=== PATIENT | male | born 1985 | race Hispanic/Latino ===

== ENCOUNTER 2016-09-19 14:28 | Emergency (ER) | payer SELFPAY ==
[2016-09-19 15:27] VITALS: BP 127/83
[2016-09-19 15:42] LABS: Basophils % (Auto) 0.5 % (0.0-1.8); Hematocrit 47.5 % (35.5-45.6); Hemoglobin 15.7 gm/dl (11.8-15.2); Mean Corpuscular HGB Conc 33 % (32-34); Mean Corpuscular Hemoglobin 31 pg (28-32); Mean Corpuscular Volume 92 fl (84-94); Platelet Count 261 K/mm3 (140-440); Red Blood Count 5.17 M/mm3 (3.65-5.03); Red Cell Distribution Width 14.2 % (13.2-15.2); White Blood Count 8.9 K/mm3 (4.5-11.0)
[2016-09-19 16:03] LABS: Anion Gap 21 mmol/L; Blood Urea Nitrogen 14 mg/dL (9-20); Calcium 9.4 mg/dL (8.4-10.2); Carbon Dioxide 23 mmol/L (22-30); Chloride 102.5 mmol/L (98-107); Glucose 103 mg/dL (75-100); Potassium 4.1 mmol/L (3.6-5.0); Sodium 142 mmol/L (137-145)
== END 2016-09-19 16:00 | disposition left against medical advice (07) ==
LOC: ED 14:28
DX: R07.9 Chest pain, unspecified (principal); R51 Headache; Z53.21 Procedure and treatment not carried out due to patient leaving prior to being seen by health care provider
CPT/HCPCS: 36415; 80048; 84484; 85025; 93005; 93010

== ENCOUNTER 2017-09-01 10:30 | Outpatient (CLI) | payer MEDICAID ==
--- NOTE | 2017-09-02 07:06 | Ultrasound Report ---
FINAL REPORT EXAM: US RENAL BILAT HISTORY: ACUTE PROSTATITIS,CALCULUS OF KIDNEY TECHNIQUE: Routine imaging was obtained of the kidneys. FINDINGS: The right kidney is normal size contour and echotexture measuring 10.6 cm x 4.8 cm x 4.7 cm. The cortical thickness is 1.5 cm. There is no evidence of shadowing stones or hydronephrosis. The left kidney measures 10.5 cm x 4.4 cm x 4.1 cm. The cortical thickness is 1.1 cm. There are multiple echogenic foci throughout the left kidney most likely representing nonobstructing stones. There is no evidence of hydronephrosis. The bladder was not fully distended at the time the examination. IMPRESSION: Multiple echogenic foci in left kidney most likely representing nonobstructing stones. No evidence of hydronephrosis bilaterally.
== END 2017-09-01 10:31 | disposition home or self-care (01) ==
LOC: US 10:30
PROVIDERS: ATTEND Urology
DX: N41.0 Acute prostatitis (principal); N20.0 Calculus of kidney
CPT/HCPCS: 76770

== ENCOUNTER 2017-10-09 09:35 | Outpatient (CLI) | payer MEDICAID ==
--- NOTE | 2017-10-09 15:24 | Cat Scan Report ---
FINAL REPORT PROCEDURE: CT ABDOMEN PELVIS WO CON TECHNIQUE: Computerized axial tomography of the abdomen and pelvis was performed without intravenous contrast. This study is performed without intravascular contrast material and its sensitivity for abdominal and pelvic pathology, including neoplasms, inflammation, abscess, free fluid, thrombosis, arterial dissection and infarction, is reduced compared with a contrast enhanced study. HISTORY: CALCULUS OF KIDNEY COMPARISON: No prior studies are available for comparison. FINDINGS: Lower Lung polo: No abnormality is seen. Upper Abdomen: There are few small calcified granulomas in the right lobe of the liver. The liver is otherwise unremarkable. The gallbladder is surgically absent. The adrenal glands are unremarkable. The pancreas and spleen show no abnormalities. Kidneys, Ureters and Urinary bladder: There is a nonobstructing 2 millimeter calculus in the upper 3rd of the right kidney. No other renal calculi are seen. No hydronephrosis visualized. No ureteral calculi are seen. The urinary bladder is nearly empty and shows no gross abnormality. 10 millimeter low-density nodule seen in the lower 3rd of the right kidney anteriorly appears represent a small renal cortical cyst. The kidneys otherwise are unremarkable. Retroperitoneum: Abdominal aorta appears normal. Nonspecific subcentimeter lymph nodes are seen in the retroperitoneum. No pathologically enlarged lymph nodes are identified. Bowel: No abnormalities are seen. Normal-appearing appendix is visualized in the right lower quadrant. Reproductive organs: Prostate gland does not appear to be enlarged. Other: Several Schmorl's nodes are visualized in the lower thoracic spine. No acute bony abnormalities are identified. IMPRESSION: Nonobstructing 2 millimeter calculus upper 3rd right kidney. Small renal cortical cyst visualize lower 3rd right kidney. Kidneys are otherwise unremarkable. No acute abnormalities are identified..
== END 2017-10-09 09:36 | disposition home or self-care (01) ==
LOC: CT 09:35
PROVIDERS: ATTEND Urology
DX: N20.0 Calculus of kidney (principal); K76.89 Other specified diseases of liver; M51.44 Schmorl's nodes, thoracic region; N28.1 Cyst of kidney, acquired; G40.909 Epilepsy, unspecified, not intractable, without status epilepticus; G92 Toxic encephalopathy; Z90.49 Acquired absence of other specified parts of digestive tract; Z91.81 History of falling; Z79.899 Other long term (current) drug therapy
CPT/HCPCS: 74176

== ENCOUNTER 2018-06-02 13:17 | Emergency (ER) | payer MEDICAID ==
--- NOTE | 2018-06-02 13:34 | Emergency Department Report ---
Blank Doc - Documentation Documentation: This is a 33-year-old male that presents with SI. Stated wants to take all pi lls to self harm self. This initial assessment/diagnostic orders/clinical plan/treatment(s) is/are subject to change based on patient's health status, clinical progression and re- assessment by fellow clinical providers in the ED. Further treatment and workup at subsequent clinical providers discretion. Patient/guardians urged not to elope from the ED as their condition may be serious if not clinically assessed and managed. Initial orders include: 1- Patient sent to MAIN ED for further evaluation and treatment 2- plastics spreading machine operator was notified to have patient be brought back [facility]. 3- RN was notified to keep patient as close range and observation until room available 4- Patient presents with substantial risk of imminent harm to self, appears to be so unable to care for his/her own physical health and safety as to create an imminently life-endangering crisis, and has committed/expressed life endangering crisis to self. Due to this and other complaints, patient is put on 1013. 5- labs
[2018-06-02 14:26] LABS: Basophils # (Auto) 0.1 K/mm3 (0.0-0.1); Basophils % (Auto) 0.8 % (0.0-1.8); Eosinophils # (Auto) 0.1 K/mm3 (0.0-0.4); Eosinophils % (Auto) 1.8 % (0.0-4.3); Hematocrit 47.6 % (35.5-45.6); Hemoglobin 16.3 gm/dl (11.8-15.2); Lymphocytes # (Auto) 2.9 K/mm3 (1.2-5.4); Lymphocytes % (Auto) 34.8 % (13.4-35.0); Mean Corpuscular HGB Conc 34 % (32-34); Mean Corpuscular Volume 93 fl (84-94); Monocytes # (Auto) 0.4 K/mm3 (0.0-0.8); Monocytes % (Auto) 5.4 % (0.0-7.3); Platelet Count 274 K/mm3 (140-440); Red Blood Count 5.13 M/mm3 (3.65-5.03)
[2018-06-02 14:42] LABS: Alanine Aminotransferase 28 units/L (7-56); Albumin 4.5 g/dL (3.9-5); BUN/Creatinine Ratio 16; Blood Urea Nitrogen 16 mg/dL (9-20); Calcium 9.6 mg/dL (8.4-10.2); Hemolysis Index 46
--- NOTE | 2018-06-02 15:05 | Emergency Department Report ---
ED General Adult HPI - General Chief complaint: Psych Stated complaint: MH Time Seen by Provider: 06/02/18 13:35 Source: patient Mode of arrival: Ambulatory Limitations: No Limitations - History of Present Illness Initial comments: The patient presents to the emergency department with a chief complaint suicidal ideations 3 days. The patient states that his plan would be to overdose on medications. Patient denies auditory or visual hallucinations. -: Sudden Severity scale (0 -10): 0 Consistency: constant Improves with: none Worsens with: none Associated Symptoms: denies other symptoms Treatments Prior to Arrival: none - Related Data Previous Rx's Medication Instructions Recorded Last Taken Type Lacosamide [Vimpat] 100 mg PO Q12HR #28 tablet 08/22/14 Unknown Rx Allergies Allergy/AdvReac Type Severity Reaction Status Date / Time lithium [[place]] Allergy Unknown Verified 09/19/16 15:23 Penicillins Allergy Rash Verified 09/19/16 15:23 fluticasone propionate AdvReac Unknown Verified 09/19/16 15:23 [From Flonase] ED Review of Systems ROS: Stated complaint: MH Other details as noted in HPI Comment: All other systems reviewed and negative Constitutional: denies: chills, fever Eyes: denies: eye pain, eye discharge, vision change ENT: denies: ear pain, throat pain Respiratory: denies: cough, shortness of breath, wheezing Cardiovascular: denies: chest pain, palpitations Endocrine: no symptoms reported Gastrointestinal: denies: abdominal pain, nausea, diarrhea Genitourinary: denies: urgency, dysuria Musculoskeletal: denies: back pain, joint swelling, arthralgia Skin: denies: rash, lesions Neurological: denies: headache, weakness, paresthesias Psychiatric: suicidal thoughts. denies: anxiety, depression, auditory hallucinations, visual hallucinations, homicidal thoughts Hematological/Lymphatic: denies: easy bleeding, easy bruising ED Past Medical Hx - Past Medical History Hx Congestive Heart Failure: No Hx Diabetes: No Hx Seizures: Yes (started before 1 years old) Hx Psychiatric Treatment: No Hx Asthma: No Hx COPD: No Additional medical history: TBI brain injury, encephalopathy - Surgical History Hx Cholecystectomy: Yes Additional Surgical History: cholycysectomy - Social History Smoking Status: Unknown if ever smoked Substance Use Type: None - Medications Home Medications: Home Medications Medication Instructions Recorded Confirmed Last Taken Type Lacosamide [Vimpat] 100 mg PO Q12HR #28 tablet 08/22/14 06/02/18 Unknown Rx ED Physical Exam - General Limitations: No Limitations General appearance: alert, in no apparent distress - Head Head exam: Present: atraumatic, normocephalic - Eye Eye exam: Present: normal appearance, PERRL, EOMI - ENT ENT exam: Present: mucous membranes moist - Neck Neck exam: Present: normal inspection - Respiratory Respiratory exam: Present: normal lung sounds bilaterally. Absent: respiratory distress, wheezes, rales - Cardiovascular Cardiovascular Exam: Present: regular rate, normal rhythm. Absent: systolic murmur, diastolic murmur, rubs, gallop - GI/Abdominal GI/Abdominal exam: Present: soft, normal bowel sounds. Absent: distended, tenderness - Rectal Rectal exam: Present: deferred - Extremities Exam Extremities exam: Present: normal inspection - Back Exam Back exam: Present: normal inspection - Neurological Exam Neurological exam: Present: alert, oriented X3, CN II-XII intact. Absent: motor sensory deficit - Psychiatric Psychiatric exam: Present: normal affect, normal mood, suicidal ideation. Absent: homicidal ideation - Skin Skin exam: Present: warm, dry, intact, normal color. Absent: rash ED Course Vital Signs 06/02/18 06/02/18 06/02/18 13:24 13:32 19:49 Temperature 98.5 F 98.2 F 98.5 F Pulse Rate 120 H 113 H 93 H Respiratory 18 20 18 Rate Blood Pressure 145/69 Blood Pressure 138/90 95/65 [Left] O2 Sat by Pulse 100 97 96 Oximetry ED Medical Decision Making - Lab Data Result diagrams: 06/02/18 14:00 06/02/18 14:00 Lab Results 06/02/18 06/02/18 06/02/18 Range/Units 13:34 14:00 14:00 WBC 8.2 (4.5-11.0) K/mm3 RBC 5.13 H (3.65-5.03) M/mm3 Hgb 16.3 H (11.8-15.2) gm/dl Hct 47.6 H (35.5-45.6) % MCV 93 (84-94) fl MCH 32 (28-32) pg MCHC 34 (32-34) % RDW 14.0 (13.2-15.2) % Plt Count 274 (140-440) K/mm3 Lymph % (Auto) 34.8 (13.4-35.0) % [place] % (Auto) 5.4 (0.0-7.3) % Eos % (Auto) 1.8 (0.0-4.3) % Baso % (Auto) 0.8 (0.0-1.8) % Lymph # 2.9 (1.2-5.4) K/mm3 [place] # 0.4 (0.0-0.8) K/mm3 Eos # 0.1 (0.0-0.4) K/mm3 Baso # 0.1 (0.0-0.1) K/mm3 Seg Neutrophils % 57.2 (40.0-70.0) % Seg Neutrophils # 4.7 (1.8-7.7) K/mm3 Sodium 143 (137-145) mmol/L Potassium 4.4 (3.6-5.0) mmol/L Chloride 104.6 (98-107) mmol/L Carbon Dioxide 25 (22-30) mmol/L Anion Gap 18 mmol/L BUN 16 (9-20) mg/dL Creatinine 1.0 (0.8-1.5) mg/dL Estimated GFR > 60 ml/min BUN/Creatinine Ratio 16 % Glucose 91 (75-100) mg/dL Calcium 9.6 (8.4-10.2) mg/dL Total Bilirubin 0.50 (0.1-1.2) mg/dL AST 29 (5-40) units/L ALT 28 (7-56) units/L Alkaline Phosphatase 79 (35-129) units/L Total Protein 7.5 (6.3-8.2) g/dL Albumin 4.5 (3.9-5) g/dL Albumin/Globulin Ratio 1.5 % TSH (0.270-4.200) mlU/mL Urine Color (Yellow) Urine Turbidity (Clear) Urine pH (5.0-7.0) Ur Specific [place] (1.003-1.030) Urine Protein (Negative) mg/dL Urine Glucose (UA) (Negative) mg/dL Urine Ketones (Negative) mg/dL Urine Blood (Negative) Urine Nitrite (Negative) Urine Bilirubin (Negative) Urine Urobilinogen (<2.0) mg/dL Ur Leukocyte Esterase (Negative) Urine WBC (Auto) (0.0-6.0) /HPF Urine RBC (Auto) (0.0-6.0) /HPF Urine Bacteria (Auto) (Negative) /HPF Urine Mucus /HPF Salicylates (2.8-20.0) mg/dL Urine Opiates Screen Presumptive negative Urine Methadone Screen Presumptive negative Acetaminophen (10.0-30.0) ug/mL Ur Barbiturates Screen Presumptive negative Ur Phencyclidine Scrn Presumptive negative Ur Amphetamines Screen Presumptive negative U Benzodiazepines Scrn Presumptive negative Urine Cocaine Screen Presumptive negative U Marijuana (THC) Screen Presumptive negative Drugs of Abuse Note Disclamer Plasma/Serum Alcohol (0-0.07) % 06/02/18 06/02/18 06/02/18 Range/Units 14:00 14:00 14:00 WBC (4.5-11.0) K/mm3 RBC (3.65-5.03) M/mm3 Hgb (11.8-15.2) gm/dl Hct (35.5-45.6) % MCV (84-94) fl MCH (28-32) pg MCHC (32-34) % RDW (13.2-15.2) % Plt Count (140-440) K/mm3 Lymph % (Auto) (13.4-35.0) % [place] % (Auto) (0.0-7.3) % Eos % (Auto) (0.0-4.3) % Baso % (Auto) (0.0-1.8) % Lymph # (1.2-5.4) K/mm3 [place] # (0.0-0.8) K/mm3 Eos # (0.0-0.4) K/mm3 Baso # (0.0-0.1) K/mm3 Seg Neutrophils % (40.0-70.0) % Seg Neutrophils # (1.8-7.7) K/mm3 Sodium (137-145) mmol/L Potassium (3.6-5.0) mmol/L Chloride (98-107) mmol/L Carbon Dioxide (22-30) mmol/L Anion Gap mmol/L BUN (9-20) mg/dL Creatinine (0.8-1.5) mg/dL Estimated GFR ml/min BUN/Creatinine Ratio % Glucose (75-100) mg/dL Calcium (8.4-10.2) mg/dL Total Bilirubin (0.1-1.2) mg/dL AST (5-40) units/L ALT (7-56) units/L Alkaline Phosphatase (35-129) units/L Total Protein (6.3-8.2) g/dL Albumin (3.9-5) g/dL Albumin/Globulin Ratio % TSH 2.180 (0.270-4.200) mlU/mL Urine Color (Yellow) Urine Turbidity (Clear) Urine pH (5.0-7.0) Ur Specific [place] (1.003-1.030) Urine Protein (Negative) mg/dL Urine Glucose (UA) (Negative) mg/dL Urine Ketones (Negative) mg/dL Urine Blood (Negative) Urine Nitrite (Negative) Urine Bilirubin (Negative) Urine Urobilinogen (<2.0) mg/dL Ur Leukocyte Esterase (Negative) Urine WBC (Auto) (0.0-6.0) /HPF Urine RBC (Auto) (0.0-6.0) /HPF Urine Bacteria (Auto) (Negative) /HPF Urine Mucus /HPF Salicylates < 0.3 L (2.8-20.0) mg/dL Urine Opiates Screen Urine Methadone Screen Acetaminophen < 5.0 L (10.0-30.0) ug/mL Ur Barbiturates Screen Ur Phencyclidine Scrn Ur Amphetamines Screen U Benzodiazepines Scrn Urine Cocaine Screen U Marijuana (THC) Screen Drugs of Abuse Note Plasma/Serum Alcohol (0-0.07) % 06/02/18 06/02/18 Range/Units 14:00 14:39 WBC (4.5-11.0) K/mm3 RBC (3.65-5.03) M/mm3 Hgb (11.8-15.2) gm/dl Hct (35.5-45.6) % MCV (84-94) fl MCH (28-32) pg MCHC (32-34) % RDW (13.2-15.2) % Plt Count (140-440) K/mm3 Lymph % (Auto) (13.4-35.0) % [place] % (Auto) (0.0-7.3) % Eos % (Auto) (0.0-4.3) % Baso % (Auto) (0.0-1.8) % Lymph # (1.2-5.4) K/mm3 [place] # (0.0-0.8) K/mm3 Eos # (0.0-0.4) K/mm3 Baso # (0.0-0.1) K/mm3 Seg Neutrophils % (40.0-70.0) % Seg Neutrophils # (1.8-7.7) K/mm3 Sodium (137-145) mmol/L Potassium (3.6-5.0) mmol/L Chloride (98-107) mmol/L Carbon Dioxide (22-30) mmol/L Anion Gap mmol/L BUN (9-20) mg/dL Creatinine (0.8-1.5) mg/dL Estimated GFR ml/min BUN/Creatinine Ratio % Glucose (75-100) mg/dL Calcium (8.4-10.2) mg/dL Total Bilirubin (0.1-1.2) mg/dL AST (5-40) units/L ALT (7-56) units/L Alkaline Phosphatase (35-129) units/L Total Protein (6.3-8.2) g/dL Albumin (3.9-5) g/dL Albumin/Globulin Ratio % TSH (0.270-4.200) mlU/mL Urine Color Yellow (Yellow) Urine Turbidity Clear (Clear) Urine pH 5.0 (5.0-7.0) Ur Specific [place] 1.029 (1.003-1.030) Urine Protein <15 mg/dl (Negative) mg/dL Urine Glucose (UA) Neg (Negative) mg/dL Urine Ketones Neg (Negative) mg/dL Urine Blood Neg (Negative) Urine Nitrite Neg (Negative) Urine Bilirubin Neg (Negative) Urine Urobilinogen < 2.0 (<2.0) mg/dL Ur Leukocyte Esterase Neg (Negative) Urine WBC (Auto) 1.0 (0.0-6.0) /HPF Urine RBC (Auto) 2.0 (0.0-6.0) /HPF Urine Bacteria (Auto) 1+ (Negative) /HPF Urine Mucus Few /HPF Salicylates (2.8-20.0) mg/dL Urine Opiates Screen Urine Methadone Screen Acetaminophen (10.0-30.0) ug/mL Ur Barbiturates Screen Ur Phencyclidine Scrn Ur Amphetamines Screen U Benzodiazepines Scrn Urine Cocaine Screen U Marijuana (THC) Screen Drugs of Abuse Note Plasma/Serum Alcohol < 0.01 (0-0.07) % - Medical Decision Making Awaiting placement Critical care attestation.: If time is entered above; I have spent that time in minutes in the direct care of this critically ill patient, excluding procedure time. ED Disposition Clinical Impression: Suicidal ideation Disposition: DC/TX-65 PSY HOSP/PSY UNIT Is pt being admited?: No Does the pt Need Aspirin: No Condition: Stable Referrals: JUDSON CATALAN MD [Primary Care Provider] - 3-5 Days
[2018-06-02 15:14] LABS: Bacteria,Urine 1+ /HPF (Negative); Bilirubin,Urine NEG (Negative); Blood,Urine NEG (Negative); Color,Urine Yellow (Yellow); Mucus,Urine FEW /HPF; Protein,Urine <15 mg/dL mg/dL (Negative); Urobilinogen,Urine < 2.0 mg/dL (<2.0)
[2018-06-02 15:20] LABS: Amphetamine Screen,Urine PRESUMPTIVE NEGATIVE; Benzodiazepines Screen,Urine PRESUMPTIVE NEGATIVE; Cannabinoid Screen,Urine PRESUMPTIVE NEGATIVE; Cocaine Screen,Urine PRESUMPTIVE NEGATIVE; Methadone Screen,Urine PRESUMPTIVE NEGATIVE; Opiate Screen,Urine PRESUMPTIVE NEGATIVE
[2018-06-02] MEDS ORDERED: NON-FORMULARY (Escitalopram Oxalate [Lexapro] 20 MG) PO SCH (20:30)
[2018-06-02] MEDS ORDERED: ABILIFY ONE ×2 (21:04)
[2018-06-02] MEDS ORDERED: ARIPIPRAZOLE 15 MG PO SCH (22:00)
[2018-06-02] MEDS ORDERED: ABILIFY PO SCH (22:00)
[2018-06-03] MEDS ORDERED: TYLENOL ONE (09:33)
[2018-06-03] MEDS ORDERED: TYLENOL PO ONE (09:56)
--- NOTE | 2018-06-03 12:42 | Consultation ---
History of Present Illness - Reason for Consult Consult date: 06/03/18 Reason for consult: Mental Health Evaluation Requesting physician: MANDIE SALMON - Chief Complaint Chief complaint: "I was dealing with a lot yesterday" - History of Present Psychiatric Illness 33 y.o. ml suarze who presented to the ER for SI's. Today the patient is calm and cooperative during the assessment. He stated that he was dealing with the illness of a family member. He stated that he felt sad and suicidal, because of the condition (medical) of his family member. He stated that he wanted help for his mental health, so he asked EMS personnel to bring him to the ER, He acknowledged several suicide attempts in the past. He stated that he take Abilify/Lexapro and see a psychiatrist. He stated, "I'm okay now." He denies SI/HI's and AVH's. He denies erratic sleep and a poor appetite. He denies recreational drug use and alcohol consumption (etoh). Medications and Allergies Allergies Allergy/AdvReac Type Severity Reaction Status Date / Time lithium [[place]] Allergy Unknown Verified 09/19/16 15:23 Penicillins Allergy Rash Verified 09/19/16 15:23 fluticasone propionate AdvReac Unknown Verified 09/19/16 15:23 [From Flonase] Home Medications Medication Instructions Recorded Confirmed Last Taken Type ARIPiprazole [Abilify] 15 mg PO QHS 06/02/18 06/02/18 06/01/18 History Escitalopram Oxalate [Lexapro] 20 mg PO DAILY 06/02/18 06/02/18 06/01/18 History OLANZapine [Zyprexa] 5 mg PO QHS 06/02/18 06/02/18 06/01/18 History cloNIDine [[place]ap[place]] 0.2 mg PO QHS 06/02/18 06/02/18 06/01/18 History Active Meds: Active Medications Aripiprazole (Abilify) 5 mg PO HS GINA Escitalopram Oxalate (Lexapro) 20 mg PO DAILY GINA Past psychiatric history - Past Medical History Past Medical History: seizures, other (TBI) Past Surgical History: No surgical history - past Psychiatric treatment and history psychiatric treatment history: Outpatient psy services per the patient. Denies a fam osy hx. - Social History Social history: lives with family Mental Status Exam - Vital signs Last Vital Signs Temp 98.1 F 06/03/18 04:30 Pulse 113 H 06/03/18 04:30 Resp 18 06/03/18 12:09 BP 124/77 06/03/18 04:30 Pulse Ox 96 06/03/18 04:30 - Exam Narrative exam: MSE: Appearance: calm, cooperative Behavior: regular eye contact Speech: regular rate and loud tone Mood: "okay" Affect: congruent to mood Thought Process: circumstantial Thought Content: denies SI/HI's and AVH's Motor Activity: sitting up in the bed Cognition: A/O x3 Insight: variable to fair Judgment: variable Results Result Diagrams: 06/02/18 14:00 06/02/18 14:00 Abnormal lab results 06/02/18 06/02/18 06/02/18 Range/Units 14:00 14:00 14:00 RBC 5.13 H (3.65-5.03) M/mm3 Hgb 16.3 H (11.8-15.2) gm/dl Hct 47.6 H (35.5-45.6) % Salicylates < 0.3 L (2.8-20.0) mg/dL Acetaminophen < 5.0 L (10.0-30.0) ug/mL All other labs normal. Assessment and Plan Assessment and plan: Impression: Unspecified Mood Mood DO. Today the patient is calm and cooperative during the assessment. DDx: MDD, R/O Bipolar DO Recommendation/Plan: Reevaluate 1013 in 24 hours. Start home medications Lexapro Prozac 20 mg PO daily for depression and Abilify 5 mg PO HS for mood. Discussed possible suicidality/medication induced juana with the patient reference Lexapro. Discussed possible metabolic side effects of Abilify with the patient. Dispo: If the patient's 1013 is rescinded in 24 hours, he can follow up with his psychiatrist Dr Alicea for outpatient psy services. Will staff with Dr Dubon.
[2018-06-03] MEDS: LEXAPRO PO SCH (15:13)
[2018-06-03] MEDS ORDERED: ABILIFY PO SCH (22:00)
[2018-06-04 02:37] VITALS: BP 127/81
--- NOTE | 2018-06-04 08:52 | Progress Note ---
Subjective - Reason for Consult Consult date: 06/04/18 Reason for consult: Psyhciatry Follow-up - Chief Complaint Chief complaint: "I feel better" 33 y.o. ml suarez who presented to the ER for SI's. Today the patient is calm and cooperative during the assessment. He stated that he found out that his family member (uncle) is doing better. He stated that he has decided to use better coping skills when stressed. He stated that he is seen by Dr Alicea at [facility] for outpatient psy services. He denies SI/HI's and AVH's. He denies any side effects of his medications. Mental Status Exam - Vital signs Last Vital Signs Temp 7.6 F L 06/04/18 01:36 Pulse 83 06/04/18 01:36 Resp 16 06/04/18 01:36 BP 127/81 06/04/18 01:36 Pulse Ox 96 06/04/18 01:36 - Exam Narrative exam: MSE: Appearance: calm, cooperative Behavior: regular eye contact Speech: regular rate and loud tone Mood: "okay" Affect: congruent to mood Thought Process: logical Thought Content: denies SI/HI's and AVH's Motor Activity: sitting up in the bed Cognition: A/O x3 Insight: appropriate Judgment: appropriate Assessment and Plan Impression: Unspecified Mood Mood DO. Today the patient is calm and cooperative during the assessment. The patient is no threat to self. DDx: MDD, R/O Bipolar DO Recommendation/Plan: Rescind 1013. and continue Lexapro Prozac 20 mg PO daily for depression and Abilify 5 mg PO HS for mood. Discussed possible suicidality/medication induced juana with the patient reference Lexapro. Discussed possible metabolic side effects of Abilify with the patient. Dispo: The patient can follow up with [facility] for outpatient psy service s. Will staff with Dr Dubon.
[2018-06-04] MEDS: LEXAPRO PO SCH (10:50)
== END 2018-06-04 14:00 ==
LOC: EEVIPCON 13:17 → ED 13:17
DX: F39 Unspecified mood [affective] disorder (principal); Z88.0 Allergy status to penicillin; Z88.8 Allergy status to other drugs, medicaments and biological substances; Z90.49 Acquired absence of other specified parts of digestive tract
CPT/HCPCS: 36415; 80053; 80307; 81001; 84443; 85025; 99284; G0480; 80320

== ENCOUNTER 2019-09-26 16:08 | Emergency (ER) | payer MEDICAID ==
--- NOTE | 2019-09-26 16:50 | Emergency Department Report ---
HPI - General Time Seen by Provider: 09/26/19 16:37 - HPI HPI: Room 16 The patient is a 34-year-old male present with a chief complaint of suicidal ideation. Patient states he is felt suicidal for 1 day. Patient states his plan was to run in front of a train. Patient denies any active attempts at harming himself. ED Past Medical Hx - Past Medical History Hx Seizures: Yes (started before 1 years old) Hx Psychiatric Treatment: Yes (Schizoaffective disorder, PTSD, bipolar disorder) Additional medical history: TBI brain injury, encephalopathy - Surgical History Hx Cholecystectomy: Yes Additional Surgical History: Cranial biopsies x3 - Family History Family history: no significant - Social History Smoking Status: Never Smoker Substance Use Type: None (Denies illicit drug use) - Medications Home Medications: Home Medications Medication Instructions Recorded Confirmed Last Taken Type OLANZapine [Zyprexa] 5 mg PO QHS 06/02/18 06/02/18 06/01/18 History cloNIDine [Catapres] 0.2 mg PO QHS 06/02/18 06/02/18 06/01/18 History ARIPiprazole [Abilify TAB] 15 mg PO HS 09/26/19 09/26/19 Unknown History PARoxetine [Paxil] 20 mg PO DAILY 09/26/19 09/26/19 Unknown History ED Review of Systems ROS: Stated complaint: WEAKNESS Other details as noted in HPI Constitutional: no symptoms reported Respiratory: no symptoms reported Endocrine: no symptoms reported Psychiatric: suicidal thoughts Physical Exam - Physical Exam Physical Exam: GENERAL: The patient is well-developed well-nourished male lying on stretcher not appearing to be in acute distress. [] HEENT: Normocephalic. Atraumatic. Extraocular motions are intact. Patient has moist mucous membranes. NECK: Supple. Trachea midline CHEST/LUNGS: Clear to auscultation. There is no respiratory distress noted. HEART/CARDIOVASCULAR: Regular. There is no tachycardia. There is no gallop rub or murmur. ABDOMEN: Abdomen is soft, nontender. Patient has normal bowel sounds. There is no abdominal distention. SKIN: There is no rash. There is no edema. There is no diaphoresis. NEURO: The patient is awake, alert, and oriented. The patient is cooperative. The patient has normal speech. MUSCULOSKELETAL: The right foot is in an orthopedic boot. ED Medical Decision Making - Lab Data Result diagrams: 09/26/19 17:12 09/26/19 17:12 Laboratory Tests 09/26/19 09/26/19 09/26/19 17:12 17:12 17:12 WBC 6.9 RBC 4.49 Hgb 14.8 Hct 42.6 MCV 95 H MCH 33 H MCHC 35 H RDW 13.7 Plt Count 249 Lymph % (Auto) 27.6 Ector % (Auto) 5.9 Eos % (Auto) 1.6 Baso % (Auto) 0.5 Lymph # 1.9 Ector # 0.4 Eos # 0.1 Baso # 0.0 Seg Neutrophils % 64.4 Seg Neutrophils # 4.4 Sodium Potassium Chloride Carbon Dioxide Anion Gap BUN Creatinine Estimated GFR BUN/Creatinine Ratio Glucose Calcium Total Bilirubin AST ALT Alkaline Phosphatase Total Protein Albumin Albumin/Globulin Ratio Urine Color Urine Turbidity Urine pH Ur Specific [place] Urine Protein Urine Glucose (UA) Urine Ketones Urine Blood Urine Nitrite Urine Bilirubin Urine Urobilinogen Ur Leukocyte Esterase Urine WBC (Auto) Urine RBC (Auto) U Epithel Cells (Auto) Urine Bacteria (Auto) Salicylates < 0.3 L Urine Opiates Screen Urine Methadone Screen Acetaminophen < 5.0 L Ur Barbiturates Screen Ur Phencyclidine Scrn Ur Amphetamines Screen U Benzodiazepines Scrn Urine Cocaine Screen U Marijuana (THC) Screen Drugs of Abuse Note Plasma/Serum Alcohol 09/26/19 09/26/19 09/26/19 17:12 17:12 Unknown WBC RBC Hgb Hct MCV MCH MCHC RDW Plt Count Lymph % (Auto) [place] % (Auto) Eos % (Auto) Baso % (Auto) Lymph # [place] # Eos # Baso # Seg Neutrophils % Seg Neutrophils # Sodium 143 Potassium 4.0 Chloride 103.1 Carbon Dioxide 26 Anion Gap 18 BUN 18 Creatinine 1.1 Estimated GFR > 60 BUN/Creatinine Ratio 16 Glucose 87 Calcium 9.5 Total Bilirubin 0.40 AST 23 ALT 19 Alkaline Phosphatase 74 Total Protein 7.9 Albumin 4.8 Albumin/Globulin Ratio 1.5 Urine Color Yellow Urine Turbidity Clear Urine pH 6.0 Ur Specific [place] 1.013 Urine Protein <15 mg/dl Urine Glucose (UA) Neg Urine Ketones Neg Urine Blood Neg Urine Nitrite Neg Urine Bilirubin Neg Urine Urobilinogen < 2.0 Ur Leukocyte Esterase Neg Urine WBC (Auto) 1.0 Urine RBC (Auto) 1.0 U Epithel Cells (Auto) < 1.0 Urine Bacteria (Auto) 1+ Salicylates Urine Opiates Screen Urine Methadone Screen Acetaminophen Ur Barbiturates Screen Ur Phencyclidine Scrn Ur Amphetamines Screen U Benzodiazepines Scrn Urine Cocaine Screen U Marijuana (THC) Screen Drugs of Abuse Note Plasma/Serum Alcohol < 0.01 09/26/19 Unknown WBC RBC Hgb Hct MCV MCH MCHC RDW Plt Count Lymph % (Auto) [place] % (Auto) Eos % (Auto) Baso % (Auto) Lymph # [place] # Eos # Baso # Seg Neutrophils % Seg Neutrophils # Sodium Potassium Chloride Carbon Dioxide Anion Gap BUN Creatinine Estimated GFR BUN/Creatinine Ratio Glucose Calcium Total Bilirubin AST ALT Alkaline Phosphatase Total Protein Albumin Albumin/Globulin Ratio Urine Color Urine Turbidity Urine pH Ur Specific [place] Urine Protein Urine Glucose (UA) Urine Ketones Urine Blood Urine Nitrite Urine Bilirubin Urine Urobilinogen Ur Leukocyte Esterase Urine WBC (Auto) Urine RBC (Auto) U Epithel Cells (Auto) Urine Bacteria (Auto) Salicylates Urine Opiates Screen Presumptive negative Urine Methadone Screen Presumptive negative Acetaminophen Ur Barbiturates Screen Presumptive negative Ur Phencyclidine Scrn Presumptive negative Ur Amphetamines Screen Presumptive negative U Benzodiazepines Scrn Presumptive negative Urine Cocaine Screen Presumptive negative U Marijuana (THC) Screen Presumptive negative Drugs of Abuse Note Disclamer Plasma/Serum Alcohol - Differential Diagnosis Suicidal ideation Critical care attestation.: If time is entered above; I have spent that time in minutes in the direct care of this critically ill patient, excluding procedure time. ED Disposition Clinical Impression: Suicidal ideation Disposition: DC/TX-65 PSY HOSP/PSY UNIT Is pt being admited?: No Does the pt Need Aspirin: No Condition: Stable Time of Disposition: 19:47 (Awaiting acceptance)
[2019-09-26 16:58] LABS: Bacteria,Urine 1+ /HPF (Negative); Bilirubin,Urine NEG (Negative); Blood,Urine NEG (Negative); Color,Urine Yellow (Yellow); Protein,Urine <15 mg/dL mg/dL (Negative); Urobilinogen,Urine < 2.0 mg/dL (<2.0)
[2019-09-26 17:10] LABS: Amphetamine Screen,Urine PRESUMPTIVE NEGATIVE; Benzodiazepines Screen,Urine PRESUMPTIVE NEGATIVE; Cannabinoid Screen,Urine PRESUMPTIVE NEGATIVE; Cocaine Screen,Urine PRESUMPTIVE NEGATIVE; Methadone Screen,Urine PRESUMPTIVE NEGATIVE; Opiate Screen,Urine PRESUMPTIVE NEGATIVE
[2019-09-26 18:18] LABS: Basophils % (Auto) 0.5 % (0.0-1.8); Eosinophils # (Auto) 0.1 K/mm3 (0.0-0.4); Eosinophils % (Auto) 1.6 % (0.0-4.3); Hematocrit 42.6 % (35.5-45.6); Hemoglobin 14.8 gm/dl (11.8-15.2); Lymphocytes # (Auto) 1.9 K/mm3 (1.2-5.4); Lymphocytes % (Auto) 27.6 % (13.4-35.0); Mean Corpuscular HGB Conc 35 % (32-34); Mean Corpuscular Volume 95 fl (84-94); Monocytes # (Auto) 0.4 K/mm3 (0.0-0.8); Monocytes % (Auto) 5.9 % (0.0-7.3); Platelet Count 249 K/mm3 (140-440); Red Blood Count 4.49 M/mm3 (3.65-5.03); Red Cell Distribution Width 13.7 % (13.2-15.2)
[2019-09-26 18:53] LABS: BUN/Creatinine Ratio 16; Blood Urea Nitrogen 18 mg/dL (9-20); Calcium 9.5 mg/dL (8.4-10.2)
[2019-09-26 18:54] LABS: Alanine Aminotransferase 19 units/L (7-56); Albumin 4.8 g/dL (3.9-5)
[2019-09-26] MEDS ORDERED: ACETAMINOPHEN 325 MG TAB PO ONE (19:54)
[2019-09-26] MEDS ORDERED: ACETAMINOPHEN 325 MG TAB ONE (19:55)
[2019-09-27 07:42] VITALS: BP 109/82
[2019-09-27] MEDS ORDERED: ACETAMINOPHEN 325 MG TAB ONE (07:47)
[2019-09-27] MEDS ORDERED: ACETAMINOPHEN 325 MG TAB PO ONE (07:48)
[2019-09-27] MEDS ORDERED: LOPERAMIDE 2 MG CAP PO ONE (09:38)
== END 2019-09-27 13:15 ==
LOC: ED 16:08
DX: R45.851 Suicidal ideations (principal); R56.9 Unspecified convulsions; Z98.890 Other specified postprocedural states; Z79.899 Other long term (current) drug therapy; Z88.0 Allergy status to penicillin; Z88.8 Allergy status to other drugs, medicaments and biological substances
CPT/HCPCS: 36415; 80053; 80307; 80320; 81001; 85025; G0480

== ENCOUNTER 2020-07-22 09:40 | Emergency (ER) | payer MEDICARE ==
[2020-07-22 10:12] LABS: Bilirubin,Urine NEG (Negative); Blood,Urine NEG (Negative); Color,Urine Yellow (Yellow); Hyaline Casts,Urine 1 /LPF; Mucus,Urine 2+ /HPF; Urobilinogen,Urine < 2.0 mg/dL (<2.0)
--- NOTE | 2020-07-22 10:20 | Emergency Department Report ---
<LOWELL RYAN - Last Filed: 07/22/20 12:23> ED Psych HPI - General Chief Complaint: Psych Stated Complaint: SUICIDAL Time Seen by Provider: 07/22/20 10:02 Source: EMS Mode of arrival: Ambulatory - History of Present Illness Initial Comments: Patient is 35 years old male with history of schizoaffective disorder, bipolar disorder, encephalopathy and history of traumatic brain injury. Patient presented to the ER via EMS from home for evaluation of suicidal ideation. Patient stated that he is getting tired of having no power in his house. Shaina ent stated that his mother telling him that he did not pay the pill and he became very upset. Patient stated that he is hearing voices asking him to kill himself. Patient stated that his plan is to run into traffic. Patient stated that he tried to kill himself before several times. Patient denied any homicidal ideation. MD Complaint: suicidal ideation, feels depressed -: Last night Associated Psychiatric Symptoms: depression, suicidal ideation, auditory hallucinations History of same: Yes If Self Harm: admits thoughts of, has plan, self-inflicted trauma - Related Data Home Medications Medication Instructions Recorded Confirmed Last Taken cloNIDine [Catapres] 0.2 mg PO QHS 06/02/18 07/22/20 1 Day Ago ~07/21/20 ARIPiprazole [Abilify TAB] 15 mg PO HS 09/26/19 07/22/20 1 Day Ago ~07/21/20 PARoxetine [Paxil] 20 mg PO DAILY 09/26/19 07/22/20 1 Day Ago ~07/21/20 Previous Rx's Medication Instructions Recorded Last Taken Type Divalproex Dr [DepaKOTE DR] 125 mg PO BID #60 tablet 07/23/20 Unknown Rx OLANZapine [Zyprexa] 5 mg PO QHS #30 tablet 07/23/20 Unknown Rx Allergies Allergy/AdvReac Type Severity Reaction Status Date / Time divalproex sodium Allergy Anaphylaxis Verified 07/22/20 22:08 [From Depakote] lithium [[place]] Allergy Unknown Verified 09/19/16 15:23 Penicillins Allergy Rash Verified 09/19/16 15:23 shellfish derived Allergy Anaphylaxis Verified 07/23/20 02:16 valproic acid [From Depakene] Allergy Anaphylaxis Verified 07/22/20 22:08 fluticasone propionate AdvReac Unknown Verified 09/19/16 15:23 [From Flonase] ED Review of Systems Comment: All other systems reviewed and negative Constitutional: denies: chills, fever Respiratory: denies: cough, shortness of breath, SOB with exertion, SOB at rest Cardiovascular: denies: chest pain, palpitations Gastrointestinal: denies: abdominal pain, nausea, vomiting Neurological: denies: headache, weakness Psychiatric: depression, auditory hallucinations, suicidal thoughts. denies: visual hallucinations, homicidal thoughts ED Past Medical Hx - Past Medical History Hx Seizures: Yes (started before 1 years old) Hx Psychiatric Treatment: Yes (Schizoaffective disorder, PTSD, bipolar disorder) Additional medical history: TBI brain injury, encephalopathy - Surgical History Hx Cholecystectomy: Yes Additional Surgical History: Cranial biopsies x3 - Social History Smoking Status: Never Smoker Substance Use Type: None - Medications Home Medications: Home Medications Medication Instructions Recorded Confirmed Last Taken Type cloNIDine [Catapres] 0.2 mg PO QHS 06/02/18 07/22/20 1 Day Ago History ~07/21/20 ARIPiprazole [Abilify TAB] 15 mg PO HS 09/26/19 07/22/20 1 Day Ago History ~07/21/20 PARoxetine [Paxil] 20 mg PO DAILY 09/26/19 07/22/20 1 Day Ago History ~07/21/[address] [DepaKOTE DR] 125 mg PO BID #60 tablet 07/23/20 Unknown Rx OLANZapine [Zyprexa] 5 mg PO QHS #30 tablet 07/23/20 Unknown Rx ED Physical Exam - General Limitations: No Limitations General appearance: alert, in no apparent distress - Head Head exam: Present: atraumatic, normocephalic, normal inspection - Eye Eye exam: Present: normal appearance, PERRL - ENT ENT exam: Present: normal exam, normal orophraynx, mucous membranes moist - Neck Neck exam: Present: normal inspection, full ROM. Absent: tenderness, meningismus - Respiratory Respiratory exam: Present: normal lung sounds bilaterally - Cardiovascular Cardiovascular Exam: Present: regular rate, normal rhythm, normal heart sounds - GI/Abdominal GI/Abdominal exam: Present: soft, normal bowel sounds. Absent: distended, tenderness, guarding, rebound, rigid, organomegaly, mass, bruit, pulsatile mass, hernia - Extremities Exam Extremities exam: Present: normal inspection, full ROM, normal capillary refill. Absent: tenderness, pedal edema, calf tenderness - Back Exam Back exam: Present: normal inspection, full ROM. Absent: CVA tenderness (R), CVA tenderness (L) - Neurological Exam Neurological exam: Present: alert, oriented X3 - Psychiatric Psychiatric exam: Present: depressed, anxious, suicidal ideation. Absent: agitated, homicidal ideation - Skin Skin exam: Present: warm, intact, normal color ED Medical Decision Making - Lab Data Result diagrams: 07/22/20 10:09 07/22/20 10:09 - Medical Decision Making Patient is 35 years old male with history of schizoaffective disorder, bipolar disorder, encephalopathy and history of traumatic brain injury. Patient presented to the ER via EMS from home for evaluation of suicidal ideation. Patient stated that he is getting tired of having no power in his house. Patient stated that his mother telling him that he did not pay the pill and he became very upset. Patient stated that he is hearing voices asking him to kill himself. Patient stated that his plan is to run into traffic. Patient stated that he tried to kill himself before several times. Patient denied any homicidal ideation. Labs reviewed and is unremarkable. Patient is medically clear to be evaluated by our psychiatric team. ED Disposition Clinical Impression: Suicidal ideation, Bipolar disorder Disposition: DC-01 TO HOME OR SELFCARE Condition: Stable Additional Instructions: Professional and Agency Contacts To help [facility](20/10) [place] Crisis Line: Suicide Prevention Line: Crisis Text Line: Text START to [phone] Emergency: 911 Outpatient COMMUNITY Behavioral Health Resources: HECTOR: [facility] [address] [place], [place] [address] ANISH: [facility] - [address] [address] MILLS: [facility] - [address] [place] [address] Thursday thru Thursday - 8am - 5pm DEV: [facility] Address: [address], [place] [id number] NIKKI: [facility] Address: [address], [place] [address] Thursday thru Thursday- 7am-2pm [facility] Address: [address] [place] [address] Thursday thru Thursday: 8:30AM-5PM Prescriptions: OLANZapine [Zyprexa] 5 mg PO QHS #30 tablet Divalproex [DepaKOTE DR] 125 mg PO BID #60 tablet Referrals: [facility] [place] [Other] - 3-5 Days <MANDIE SALMON - Last Filed: 07/23/20 14:38> ED Review of Systems ROS: Stated complaint: SUICIDAL Other details as noted in HPI ED Course Vital Signs 07/22/20 07/22/20 07/22/20 09:58 20:39 21:02 Temperature 98.6 F 97.4 F L Pulse Rate 66 93 H Respiratory 20 20 16 Rate Blood Pressure 111/76 108/70 [Left] O2 Sat by Pulse 96 96 96 Oximetry 07/23/20 07/23/20 07/23/20 00:20 02:00 08:00 Temperature 98.7 F 98.7 F Pulse Rate 95 H 89 Respiratory 20 18 18 Rate Blood Pressure 100/59 107/81 [Left] O2 Sat by Pulse 96 97 Oximetry ED Medical Decision Making - Lab Data Result diagrams: 07/22/20 10:09 07/22/20 10:09 Critical care attestation.: If time is entered above; I have spent that time in minutes in the direct care of this critically ill patient, excluding procedure time. ED Disposition Is pt being admited?: No Does the pt Need Aspirin: No
[2020-07-22 10:28] LABS: Amphetamine Screen,Urine Negative; Benzodiazepines Screen,Urine Negative; Cannabinoid Screen,Urine Negative; Cocaine Screen,Urine Negative; Methadone Screen,Urine Negative; Opiate Screen,Urine Negative
[2020-07-22 10:35] LABS: Basophils % (Auto) 0.5 % (0.0-1.8); Eosinophils # (Auto) 0.2 K/mm3 (0.0-0.4); Eosinophils % (Auto) 2.6 % (0.0-4.3); Hematocrit 47.6 % (35.5-45.6); Hemoglobin 15.7 gm/dl (11.8-15.2); Lymphocytes # (Auto) 2.5 K/mm3 (1.2-5.4); Lymphocytes % (Auto) 33.9 % (13.4-35.0); Mean Corpuscular HGB Conc 33 % (32-34); Mean Corpuscular Volume 92 fl (84-94); Monocytes # (Auto) 0.5 K/mm3 (0.0-0.8); Monocytes % (Auto) 6.3 % (0.0-7.3); Platelet Count 302 K/mm3 (140-440); Red Cell Distribution Width 14.4 % (13.2-15.2)
[2020-07-22 10:51] LABS: BUN/Creatinine Ratio 11; Blood Urea Nitrogen 12 mg/dL (9-20); Calcium 9.1 mg/dL (8.4-10.2); Hemolysis Index 13
--- NOTE | 2020-07-22 11:03 | Consultation ---
History of Present Illness - Reason for Consult Consult date: 07/22/20 Reason for consult: SI/hallucinations - History of Present Psychiatric Illness Per ED Note: Patient is 35 years old male with history of schizoaffective disorder, bipolar disorder, encephalopathy and history of traumatic brain injury. Patient presented to the ER via EMS from home for evaluation of suicidal ideation. Patient stated that he is getting tired of having no power in his house. Patient stated that his mother telling him that he did not pay the pill and he became very upset. Patient stated that he is hearing voices asking him to kill himself. Patient stated that his plan is to run into traffic. Patient stated that he tried to kill himself before several times. Patient denied any homicidal ideation. During my interview with 35y/o Johan Machado, he is not known to me. He is cooperative. He is a little jumpy. He jumps back and ask "are you going to hurt me." The patient verbalizes being stressed out and having too many things on his plate. He also verbalizes being suicidal and states "I will take all my meds at one time." He is verbalizing auditory and visual hallucinations. The patient says he is hearing voices telling him to hurt himself. He also says he sees ghosts. I attempted to speak with the patient's mother via phone at [phone], twice. Was unable to reach her. Message left . PAST PSYCHIATRIC HISTORY: Diagnoses: Bipolar, schizophrenia Suicide attempts or Self-harm behavior: Yes Prior psychiatric hospitalizations: Yes Substance Abuse history: Denies Previous psychiatric medications tried: Trazodone, could not recall others Outpatient treatment: Yes PAST MEDICAL HISTORY: None reported Family Psychiatric History: None reported or documented SOCIAL HISTORY Marital Status: Single Living Arrangements: with mother Employment Status: Disabled Access to guns/weapons: Denies Education: high school History of Abuse: Denies REVIEW OF SYSTEMS Constitutional: Negative for weight loss ENT: Negative for stridor Respiratory: Negative for cough or hemoptysis All other systems reviewed and are negative MENTAL STATUS EXAMINATION General Appearance and Behavior: Age appropriate, good hygiene, not wearing appropriate clothes, good eye contact, jumpy, cooperative Cooperation: Participating Psychomotor Behavior: Psychomotor normal Mood: "not good" Affect and affective range: Congruent with stated mood Thought Process: illogical Speech: Normal tone and pace Thought Content Suicidal Ideation: Yes Homicidal Ideation: Denies Hallucinations: A/V Delusions: None elicited Impulse Control: Limited Insight and Judgment: Impaired insight and judgment Memory: Limited Attention: Divided attention impaired Orientation: A/o x 3 Assessment and Plan (1) Bipolar Disorder Current Visit: Yes Status: Acute Treatment Plan 1013 Olanzapine 5mg po daily Depakote DR 125mg po BID Sitter: Defer to primary Medical: per primary Disposition: Recommend acute psychiatric inpatient. Will speak with the patient's mother to obtain collateral and insight into the patient's history. Will follow Case staffed with Dr. Irene Medications and Allergies Allergies Allergy/AdvReac Type Severity Reaction Status Date / Time lithium [[place]] Allergy Unknown Verified 09/19/16 15:23 Penicillins Allergy Rash Verified 09/19/16 15:23 fluticasone propionate AdvReac Unknown Verified 09/19/16 15:23 [From Flonase] Home Medications Medication Instructions Recorded Confirmed Last Taken Type OLANZapine [Zyprexa] 5 mg PO QHS 06/02/18 09/26/19 06/01/18 History cloNIDine [Catapres] 0.2 mg PO QHS 06/02/18 09/26/19 06/01/18 History ARIPiprazole [Abilify TAB] 15 mg PO HS 09/26/19 09/26/19 Unknown History PARoxetine [Paxil] 20 mg PO DAILY 09/26/19 09/26/19 Unknown History Mental Status Exam - Vital signs Last Vital Signs Temp 98.6 F 07/22/20 09:58 Pulse 66 07/22/20 09:58 Resp 20 07/22/20 09:58 BP 111/76 07/22/20 09:58 Pulse Ox 96 07/22/20 09:58 Results Result Diagrams: 07/22/20 10:09 07/22/20 10:09 Abnormal lab results 07/22/20 07/22/20 07/22/20 Range/Units 10:09 10:09 10:09 RBC (3.65-5.03) M/mm3 Hgb (11.8-15.2) gm/dl Hct (35.5-45.6) % Glucose 115 H (75-100) mg/dL Salicylates < 0.3 L (2.8-20.0) mg/dL Acetaminophen 5.0 L (10.0-30.0) ug/mL 07/22/20 Range/Units 10:09 RBC 5.20 H (3.65-5.03) M/mm3 Hgb 15.7 H (11.8-15.2) gm/dl Hct 47.6 H (35.5-45.6) % Glucose (75-100) mg/dL Salicylates (2.8-20.0) mg/dL Acetaminophen (10.0-30.0) ug/mL All other labs normal.
[2020-07-22] MEDS: DIVALPROEX DR 125 MG TAB PO SCH ×2 (12:02→22:09)
[2020-07-22] MEDS ORDERED: ACETAMINOPHEN 500 MG TAB PO ONE (22:54)
[2020-07-23 08:59] VITALS: BP 107/81
--- NOTE | 2020-07-23 09:44 | Progress Note ---
Subjective - Reason for Consult Consult date: 07/23/20 Reason for consult: SI - Chief Complaint Chief complaint: Per nursing staff: The patient has been fine and has had no verbalized thoughts of SI/HI or A/V hallucinations. The patient was seen today he is calm and cooperative. He states he feels a lot better. The patient says "I talked to my mom and I feel good enough to go home." He denies SI/HI or hallucinations of any kind. REVIEW OF SYSTEMS Constitutional: Negative for weight loss ENT: Negative for stridor Respiratory: Negative for cough or hemoptysis All other systems reviewed and are negative MENTAL STATUS EXAMINATION General Appearance and Behavior: Age appropriate, good hygiene, not wearing appropriate clothes, good eye contact, jumpy, cooperative Cooperation: Participating Psychomotor Behavior: Psychomotor normal Mood: "not good" Affect and affective range: Congruent with stated mood Thought Process: illogical Speech: Normal tone and pace Thought Content Suicidal Ideation: Yes Homicidal Ideation: Denies Hallucinations: A/V Delusions: None elicited Impulse Control: Limited Insight and Judgment: Impaired insight and judgment Memory: Limited Attention: Divided attention impaired Orientation: A/o x 3 Assessment and Plan (1) Bipolar Disorder Current Visit: Yes Status: Acute Treatment Plan d/c 1013 Olanzapine 5mg po daily Depakote DR 125mg po BID Sitter: Defer to primary Medical: per primary Disposition: Do not recommend acute psychiatric inpatient. The patient understands if suicidal thoughts return he is to seek immediate assistance including but not limited to 911/ER or crisis hotline Will sign off. Case staffed with Dr. Irene Mental Status Exam - Vital signs Last Vital Signs Temp 98.7 F 07/23/20 08:00 Pulse 89 07/23/20 08:00 Resp 18 07/23/20 08:00 BP 107/81 07/23/20 08:00 Pulse Ox 97 07/23/20 08:00
--- NOTE | 2020-07-23 10:01 | Progress Note ---
Subjective - Reason for Consult Consult date: 07/23/20 Reason for consult: SI - Chief Complaint Chief complaint: Per nursing staff: The patient has been fine and has had no verbalized thoughts of SI/HI or A/V hallucinations. The patient was seen today he is calm and cooperative. He states he feels a lot better. The patient says "I talked to my mom and I feel good enough to go home." He denies SI/HI or hallucinations of any kind. REVIEW OF SYSTEMS Constitutional: Negative for weight loss ENT: Negative for stridor Respiratory: Negative for cough or hemoptysis All other systems reviewed and are negative MENTAL STATUS EXAMINATION General Appearance and Behavior: Age appropriate, good hygiene, not wearing appropriate clothes, good eye contact, calm and cooperative Cooperation: Participating Psychomotor Behavior: Psychomotor normal Mood: "a lot better" Affect and affective range: Congruent with stated mood Thought Process: goal directed Speech: Normal tone and pace Thought Content Suicidal Ideation: Denies Homicidal Ideation: Denies Hallucinations: Denies Delusions: None elicited Impulse Control: Limited Insight and Judgment: Impaired insight and judgment Memory: Limited Attention: Divided attention impaired Orientation: A/o x 3 Assessment and Plan (1) Bipolar Disorder Current Visit: Yes Status: Acute Treatment Plan d/c 1013 Olanzapine 5mg po daily Depakote DR 125mg po BID Sitter: Defer to primary Medical: per primary Disposition: Do not recommend acute psychiatric inpatient. The patient understands if suicidal thoughts return he is to seek immediate assistance including but not limited to 911/ER or crisis hotline Will sign off. Case staffed with Dr. Irene Mental Status Exam - Vital signs Last Vital Signs Temp 98.7 F 07/23/20 08:00 Pulse 89 07/23/20 08:00 Resp 18 07/23/20 08:00 BP 107/81 07/23/20 08:00 Pulse Ox 97 07/23/20 08:00
--- NOTE | 2020-07-23 10:36 | Emergency Department Report ---
Blank Doc - Documentation Documentation: No new events No new complaints Awaiting placement
[2020-07-23] MEDS: DIVALPROEX DR 125 MG TAB PO SCH (11:26)
== END 2020-07-23 17:00 | disposition home or self-care (01) ==
LOC: ED 09:40
DX: R45.851 Suicidal ideations (principal); Z20.822 Contact with and (suspected) exposure to COVID-19; F31.9 Bipolar disorder, unspecified; R56.9 Unspecified convulsions; Z90.49 Acquired absence of other specified parts of digestive tract; Z98.890 Other specified postprocedural states; Z79.899 Other long term (current) drug therapy; Z88.0 Allergy status to penicillin; Z91.013 Allergy to seafood
CPT/HCPCS: 36415; 80048; 80307; 81001; 85025; 99284; U0003; 80320; G0480

== ENCOUNTER 2021-05-06 10:40 | Outpatient (CLI) | payer MEDICARE ==
--- NOTE | 2021-05-06 13:27 | Cat Scan Report ---
CT OF THE ABDOMEN AND PELVIS WITHOUT CONTRAST INDICATION / CLINICAL INFORMATION: CALCULUS OF KIDNEY N20.0. TECHNIQUE: All CT scans at this location are performed using CT dose reduction for ALARA by means of automated exposure control. COMPARISON: 10/09/17. FINDINGS: ABDOMEN: There is a 1 to 2 mm nonobstructive calculus in the lower pole of the right kidney. I do not identify a left renal calculus. There is a 1 cm simple cyst-appearing lesion in the lower pole of th e right kidney anteriorly. I see no evidence of hydronephrosis. The gallbladder is surgically absent. The liver, spleen, bile ducts, pancreas, adrenal glands and bow el demonstrate no significant abnormality. No adenopathy is present. The lung bases are clear. PELVIS: The distal ureters, urinary bladder, prostate gland and seminal vesicles are normal. A normal appendix is present and there is no evidence of diverticulitis. No abnormal mass or fluid co llection is seen. I do not identify a hernia. No acute osseous abnormality is seen. IMPRESSION: Tiny nonobstructive calculus in the lower pole of the right kidney. No evidence of ureter al calculus or hydronephrosis. Signer Name: Dariel Brown MD Signed: 05/06/2021 1:23 PM Workstation Name: [id number]
== END 2021-05-06 10:41 | disposition home or self-care (01) ==
LOC: CT 10:40
PROVIDERS: ATTEND Urology
DX: N20.0 Calculus of kidney (principal); Z90.49 Acquired absence of other specified parts of digestive tract
CPT/HCPCS: 74176